=== PATIENT | female | born 1995 | race Caucasian/White ===

== ENCOUNTER 2017-07-22 22:40 | Emergency (ER) | payer SELFPAY ==
--- NOTE | 2017-07-22 22:43 | PDOC ---
History of Present Illness - General Chief Complaint: Pain, Acute Stated Complaint: ABDOMINAL PAIN/MENSTRUATING Time Seen by Provider: 07/22/17 22:43 History Source: Patient Exam Limitations: No Limitations - History of Present Illness Initial Comments: 07/22/17 23:11 This is a 22-year-old female who comes in complaining of crampy abdominal pain yesterday worse and very mild today. However denies any pain at this time. Patient is concerned because she had a much heavier than usual. And passed something that looked like tissue she thought. Patient thinks she may have been and wanted to know if she is . Patient otherwise denies any abdominal pain at this time. Patient denies any nausea, fever, chills, vomiting , diarrhea or any other complaints. PAST MEDICAL HISTORY: no significant history PAST SURGICAL HISTORY: no significant history FAMILY HISTORY: no pertinant history SOCIAL HISTORY: Pt lives with family and is employed. MEDICATIONS: reviewed ALLERGIES: As per nursing notes Review of Systems General: No fevers or chills, no weakness, no weight loss HEENT: No change in vision. No sore throat,. No ear pain CardioVascular: No chest pain or shortness of breath Respiratory:No cough, or wheezing. Gastrointestinal: no nausea, vomitting, diarrhea or constipation, No rectal bleeding, : Crampy abdominal/pelvic pain yesterday Genitourinary: No dysuria, hematuria, or frequency Musculoskeletal: No joint or muscle pain or swelling Neurologic: No headache, vertigo, dizziness or loss of consciousness Psychiatric: nor depression Skin: No rashes or easy bruising Endocrine: no increased thirst or abnormal weight change Allergic: no skin or latex allergy All other systems reviewed and normal Exam: General: Well-nourished well-developed individual, no acute distress Eyes::Pupils equal reactive and round, extraocular motion intact Chest: Nontender to palpation Cardiac: S1-S2 normal, regular rate and rhythm, no murmurs rubs or gallops Respiratory: Lungs clear to auscultation bilateral Abdomen: Soft, nondistended, normal bowel sounds, nontender to palpation diffusely Extremities: Warm, dry, no cyanosis, clubbing, or edema Skin: No rashes Neuro: Alert and oriented x3, CN II - XII intact, nonfocal exam with normal strength, normal sensation, normal reflexes, normal gait, Psych: Normal mood and affect Patient's test was negative her urine showed a moderate amount of red cells but no bacteria and a few white cells. Patient had no urinary tract symptoms. Patient discharged home told she can continue Motrin if she needed for discomfort and follow-up with her OB doctor Past History - Past Medical History Allergies/Adverse Reactions: Allergies Allergy/AdvReac Type Severity Reaction Status Date / Time No Known Allergies Allergy Verified 07/22/17 22:42 Home Medications: Ambulatory Orders NK [No Known Home Medication] 07/22/17 *DC/Admit/Observation/Transfer Diagnosis at time of Disposition: Dysmenorrhea - Discharge Dispostion Disposition: HOME Condition at time of disposition: Stable Admit: No - Referrals - Patient Instructions Additional Instructions: U can take ibuprofen if needed for pain. Return to the emergency department immediately with ANY new, persistent or worsening symptoms. Continue any medications as previously prescribed by your physician. You should follow up with your primary doctor as soon as possible regarding today's emergency department visit. . Please make sure your doctor reviews the results of your emergency evaluation. Thank you for coming to the Emergency Department today for your care. It was a pleasure to see you today. Please note that your evaluation is INCOMPLETE until you follow-up with your doctor. - Post Discharge Activity
[2017-07-22 22:50] VITALS: BP 150/100; PULSE 89; TEMP 98.1; BMI 38.4
[2017-07-22 22:58] LABS: PH,URINE 5.5 (4.5-8); URINE APPEARANCE Clear; URINE BILIRUBIN Negative (NEGATIVE); URINE GLUCOSE (UA) Negative (NEGATIVE); URINE KETONE Negative (NEGATIVE); URINE NITRITE Negative (NEGATIVE); URINE UROBILINOGEN 0.2 (0.2-1.0)
[2017-07-22 22:59] LABS: URINE BLOOD 3+ (NEGATIVE); URINE LEUK ESTERASE 1+ (NEGATIVE); URINE PROTEIN 1+ (NEGATIVE)
[2017-07-22 23:00] LABS: URINE COLOR YELLOW
[2017-07-22 23:07] LABS: HCG,QUALITATIVE URINE NEGATIVE
[2017-07-22 23:12] LABS: EPI CELLS FEW /HPF; URINE RBC 40-60 /hpf (0-3)
[2017-07-22 23:13] LABS: AMORP URATES FEW /hpf (NONE SEEN); URINE BACTERIA FEW /hpf (NEGATIVE)
== END 2017-07-22 23:24 | disposition home or self-care (01) ==
LOC: FER 22:40
DX: N94.6 Dysmenorrhea, unspecified (principal)
CPT/HCPCS: 81003; 81015; 84703; 99281-25

== ENCOUNTER 2017-10-18 18:43 | Emergency (ER) | payer SELFPAY ==
[2017-10-18 19:02] VITALS: BP 130/92; PULSE 92; TEMP 98.8; BMI 36.6
[2017-10-18 19:15] LABS: PH,URINE 6.5 (4.5-8); URINE APPEARANCE Clear; URINE BILIRUBIN Negative (NEGATIVE); URINE COLOR Yellow; URINE GLUCOSE (UA) Negative (NEGATIVE); URINE KETONE Trace (NEGATIVE); URINE LEUK ESTERASE Negative (NEGATIVE); URINE NITRITE Negative (NEGATIVE); URINE UROBILINOGEN 0.2 (0.2-1.0)
[2017-10-18 19:16] LABS: URINE PROTEIN 1+ (NEGATIVE)
[2017-10-18 19:21] LABS: HCG,QUALITATIVE URINE Negative
--- NOTE | 2017-10-18 19:22 | PDOC ---
History of Present Illness - General History Source: Patient Exam Limitations: No Limitations <Guy Theodore - Last Filed: 10/18/17 19:35> - History of Present Illness Initial Comments: 10/18/17 19:29 The patient is a 22 year old female, A1, with a significant past medical history of anxiety who presents to the emergency department complaining of 1 week of lower abdominal cramping pain to be evaluated for potential . She endorses symptoms of nausea, fatigue, tender breasts, and heightened sensories to smells over the past week. The patient states that she does not actively take oral contraceptives, although she has taken the "morning-after" pill 3-4 times in the past. She states that recently she took the morning-after pill approximately 2 weeks ago after unprotected intercourse with her partner. Of note, she adds that her menses is 2-4 days late as of current. LMP: September 17 Denies chest pain, shortness of breath, headache, and dizziness. Denies fevers, chills, vomiting, diarrhea, and constipation. Denies dysuria, frequency, urgency, and hematuria. Allergies: NKA Past surgical history: None reported. Social history: No reported cigarette, alcohol, or drug use. PCP: Dr. Mendoza <Leanne Casas - Last Filed: 10/18/17 19:57> - General Chief Complaint: ,Possible Stated Complaint: POSSIBLE Time Seen by Provider: 10/18/17 19:00 Past History - Past Medical History COPD: No - Reproductive History Is Patient Now?: (NOT SURE) (#): 1 Para: 0 Spontaneous : 1 - Suicide/Smoking/Psychosocial Hx Smoking History: Never smoked Have you smoked in the past 12 months: No Hx Alcohol Use: No Drug/Substance Use Hx: No Substance Use Type: None <Guy Theodore - Last Filed: 10/18/17 19:35> <Leanne Casas - Last Filed: 10/18/17 19:57> - Past Medical History Allergies/Adverse Reactions: Allergies Allergy/AdvReac Type Severity Reaction Status Date / Time No Known Allergies Allergy Verified 10/18/17 18:54 Home Medications: Ambulatory Orders Paroxetine HCl [Paxil] 10 mg PO DAILY PRN 10/18/17 Review of Systems - Review of Systems Able to Perform ROS?: Yes Comments:: 10/18/17 19:46 ADULT ROS GENERAL/CONSTITUTIONAL: No fever or chills. No weakness. HEAD, EYES, EARS, NOSE AND THROAT: No change in vision. No ear pain or discharge. No sore throat. CARDIOVASCULAR: No chest pain or shortness of breath. RESPIRATORY: No cough, wheezing, or hemoptysis. GASTROINTESTINAL: No nausea, vomiting, diarrhea or constipation. GENITOURINARY: No dysuria, frequency, or change in urination. MUSCULOSKELETAL: No joint or muscle swelling or pain. No neck or back pain. SKIN: No rash NEUROLOGIC: No headache, vertigo, loss of consciousness, or change in strength/ sensation. ENDOCRINE: No increased thirst. No abnormal weight change. HEMATOLOGIC/LYMPHATIC: No anemia, easy bleeding, or history of blood clots. ALLERGIC/IMMUNOLOGIC: No hives or skin allergy. <Leanne Casas - Last Filed: 10/18/17 19:57> *Physical Exam - Vital Signs Last Vital Signs Temp Pulse Resp BP Pulse Ox 98.8 F 92 H 15 130/92 100 10/18/17 18:51 10/18/17 18:51 10/18/17 18:51 10/18/17 18:51 10/18/17 18:51 <Guy Theodore - Last Filed: 10/18/17 19:35> - Vital Signs Last Vital Signs Temp Pulse Resp BP Pulse Ox 98.8 F 92 H 15 130/92 100 10/18/17 18:51 10/18/17 18:51 10/18/17 18:51 10/18/17 18:51 10/18/17 18:51 - Physical Exam Comments: 10/18/17 19:46 GENERAL: Awake, alert, and fully oriented, in no acute distress HEAD: No signs of trauma EYES: PERRLA, EOMI, sclera anicteric, conjunctiva clear ENT: Auricles normal inspection, hearing grossly normal, nares patent, oropharynx clear without exudates. Moist mucosa NECK: Normal ROM, supple, no lymphadenopathy, JVD, or masses LUNGS: Breath sounds equal, clear to auscultation bilaterally. No wheezes, and no crackles HEART: Regular rate and rhythm, normal S1 and S2, no murmurs, rubs or gallops ABDOMEN: Soft, nontender, normoactive bowel sounds. No guarding, no rebound. No masses EXTREMITIES: Normal range of motion, no edema. No clubbing or cyanosis. No cords, erythema, or tenderness NEUROLOGICAL: Cranial nerves II through XII grossly intact. Normal speech, normal gait SKIN: Warm, Dry, normal turgor, no rashes or lesions noted. <Leanne Casas - Last Filed: 10/18/17 19:57> ED Treatment Course - ADDITIONAL ORDERS Additional order review: Laboratory Results 10/18/17 19:03 Urine Color Yellow Urine Appearance Clear Urine pH 6.5 Ur Specific Arjay 1.025 Urine Protein 1+ H Urine Glucose (UA) Negative Urine Ketones Trace Urine Blood 2+ H Urine Nitrite Negative Urine Bilirubin Negative Urine Urobilinogen 0.2 Ur Leukocyte Esterase Negative <Guy Theodore - Last Filed: 10/18/17 19:35> - ADDITIONAL ORDERS Additional order review: Laboratory Results 10/18/17 19:03 Urine Color Yellow Urine Appearance Clear Urine pH 6.5 Ur Specific Arjay 1.025 Urine Protein 1+ H Urine Glucose (UA) Negative Urine Ketones Trace Urine Blood 2+ H Urine Nitrite Negative Urine Bilirubin Negative Urine Urobilinogen 0.2 Ur Leukocyte Esterase Negative Urine HCG, Qual Negative <Leanne Casas - Last Filed: 10/18/17 19:57> Medical Decision Making - Medical Decision Making 10/18/17 19:17 A portion of this note was written by my scribe, under my supervision. Vital Signs Temp Pulse Resp BP Pulse Ox 98.8 F 92 H 15 130/92 100 10/18/17 18:51 10/18/17 18:51 10/18/17 18:51 10/18/17 18:51 10/18/17 18:51 22 year old female with PMH anxiety p/w lower abdominal cramping, fatigue, nausea x 1 week. Pt has been endorsing bloatiness, and increased sensitivity to food. Pt is concerned as she believed she missed her period 2 days. Her LMP September 17. Typically her cycle is 28 days. She does not take any controll pills but typically uses condoms. Last sexual intercourse on October 01 but did not use condom. Used Plan B the following day. The patient had taken a home test which was negative. However, pt is quite anxious as she missed her period 4 days ago. I suspect that the plan B had caused a late period. Urine test here is negative. However, will confirm with beta HCG given patient is quite concerned. Will draw beta HCG and have patient call back for the results. She has no abdominal pain. <Guy Theodore - Last Filed: 10/18/17 19:35> *DC/Admit/Observation/Transfer - Discharge Dispostion Decision to Admit order: No <Guy Theodore - Last Filed: 10/18/17 19:35> - Attestations Scribe Attestion: 10/18/17 19:57 Documentation prepared by Leanne Casas, acting as resident medical officer for Guy Theodore MD. <Leanne Casas - Last Filed: 10/18/17 19:57> Diagnosis at time of Disposition: Abdominal cramping - Discharge Dispostion Condition at time of disposition: Good - Referrals Referrals: Nhung Mendoza MD [Primary Care Provider] - - Patient Instructions Additional Instructions: We have drawn a serum beta HCG level. Please call [phone] for the results. - Post Discharge Activity
[2017-10-18 22:09] LABS: EPI CELLS FEW /HPF; URINE BACTERIA FEW /hpf (NEGATIVE)
== END 2017-10-18 20:04 | disposition home or self-care (01) ==
LOC: FER 18:43
DX: R10.30 Lower abdominal pain, unspecified (principal)
CPT/HCPCS: 36415; 81003; 81015; 84702; 84703; 99281-25

== ENCOUNTER 2017-11-01 16:00 | Emergency (ER) | payer SELFPAY ==
[2017-11-01 16:25] VITALS: BP 113/76; PULSE 90; TEMP 98.7; BMI 36.6
[2017-11-01] MEDS ORDERED: CEPHALEXIN MONOHYDRATE 500 MG CAPSULE (UD) PO ONE (16:25)
--- NOTE | 2017-11-01 16:26 | PDOC ---
History of Present Illness - General History Source: Patient Exam Limitations: No Limitations <Guy Theodore - Last Filed: 11/01/17 16:33> - History of Present Illness Initial Comments: 11/01/17 16:35 The patient is a 22-year-old female with a past medical history of anxiety presents to the emergency department with eye swelling. The patient presents with swelling to the R. upper eyelid since Sunday. The patient states the swellings been consistent, but today she noticed an increase in swelling when she woke up today. The patient reports using neomycin/polymyxin eye drop and Ice, without relief. The patient reports associated concern of soreness , thats aggravated with blinking. Denies vision changes, blurry vision, diplopia. Denies excessive tearing or discharge from the eye. Denies fever or chills. Denies rhinorrhea or sore throat. Denies ear pain. Allergies: NKDA. Social history: The patient denies the use of cigarettes. Denies the use of alcohol or recreational drugs. PCP: Nhung Henning MD ([phone]). <Nicole Martin - Last Filed: 11/01/17 16:35> - General Chief Complaint: Eye Problem Stated Complaint: RIGHT EYELID SWELLING & REDNESS Time Seen by Provider: 11/01/17 16:07 Past History - Past Medical History COPD: No - Reproductive History (#): 1 Para: 0 Spontaneous : 1 - Suicide/Smoking/Psychosocial Hx Smoking History: Never smoked Have you smoked in the past 12 months: No Hx Alcohol Use: No Drug/Substance Use Hx: No Substance Use Type: None <Guy Theodore - Last Filed: 11/01/17 16:33> <Nicole Martin - Last Filed: 11/01/17 16:35> - Past Medical History Allergies/Adverse Reactions: Allergies Allergy/AdvReac Type Severity Reaction Status Date / Time No Known Allergies Allergy Verified 10/18/17 18:54 Home Medications: Ambulatory Orders Paroxetine HCl [Paxil] 10 mg PO DAILY PRN 10/18/17 Cephalexin Monohydrate [Keflex -] 500 mg PO Q8H #21 capsule 11/01/17 Review of Systems - Review of Systems Comments:: 11/01/17 16:34 GENERAL/CONSTITUTIONAL: No fever or chills. No weakness. HEAD, EYES, EARS, NOSE AND THROAT: (+) R. upper eyelid redness with swelling. No change in vision. No ear pain or discharge. No sore throat. SKIN: No rash NEUROLOGIC: No headache, vertigo, loss of consciousness, or change in strength/ sensation. <Nicole Martin - Last Filed: 11/01/17 16:35> *Physical Exam - Vital Signs Last Vital Signs Temp Pulse Resp BP Pulse Ox 98.7 F 90 15 113/76 99 11/01/17 16:07 11/01/17 16:07 11/01/17 16:07 11/01/17 16:07 11/01/17 16:07 <Guy Theodore - Last Filed: 11/01/17 16:33> - Vital Signs Last Vital Signs Temp Pulse Resp BP Pulse Ox 98.7 F 90 15 113/76 99 11/01/17 16:07 11/01/17 16:07 11/01/17 16:07 11/01/17 16:07 11/01/17 16:07 - Physical Exam Comments: 11/01/17 16:34 GENERAL: Awake, alert, and fully oriented, in no acute distress HEAD: No signs of trauma EYES: (+) R. upper eyelid stye and erythema along the eyelid. No drainage or fluctuance. PERRLA, EOMI, sclera anicteric, conjunctiva clear ENT: Auricles normal inspection, hearing grossly normal, nares patent, oropharynx clear without exudates. Moist mucosa NEUROLOGICAL: Cranial nerves II through XII grossly intact. Normal speech, normal gait SKIN: Warm, Dry, normal turgor, no rashes or lesions noted. <Nicole Martin - Last Filed: 11/01/17 16:35> Medical Decision Making - Medical Decision Making 11/01/17 16:26 A portion of this note was written by my scribe, under my supervision. Vital Signs Temp Pulse Resp BP Pulse Ox 98.7 F 90 15 113/76 99 11/01/17 16:07 11/01/17 16:07 11/01/17 16:07 11/01/17 16:07 11/01/17 16:07 22 year old female with hx of anxiety presents with R eyelid stye x 4 days. States that she noticed redness and swelling in right upper eyelid that progressively worsened. Denies visual acuity changes or discharged. Does not recall scratching her eyes. The patient has a stye. Warm compresses. Will prescribe keflex as symptoms are worsening. Follow up with optho. <Guy Theodore - Last Filed: 11/01/17 16:33> *DC/Admit/Observation/Transfer - Discharge Dispostion Decision to Admit order: No <Guy Theodore - Last Filed: 11/01/17 16:33> <Nicole Martin - Last Filed: 11/01/17 16:35> Diagnosis at time of Disposition: Stye Qualifiers: Laterality: right Eyelid: upper Qualified Code(s): H00.011 - Hordeolum externum right upper eyelid - Discharge Dispostion Disposition: HOME Condition at time of disposition: Good - Prescriptions Prescriptions: Cephalexin Monohydrate [Keflex -] 500 mg PO Q8H #21 capsule - Referrals Referrals: Nhung Mendoza MD [Primary Care Provider] - - Patient Instructions Printed Discharge Instructions: DI for Hordeolum Additional Instructions: Please use warm compresses. Take the antibiotics as prescribed. It may take several days before your symptoms improve. Follow up with your eye doctor. - Post Discharge Activity
[2017-11-01] MEDS ORDERED: CEPHALEXIN MONOHYDRATE 500 MG CAPSULE (UD) ONE (16:36)
== END 2017-11-01 16:42 | disposition home or self-care (01) ==
LOC: FER 16:00
DX: H00.011 Hordeolum externum right upper eyelid (principal)
CPT/HCPCS: 99281-25